=== PATIENT | male | born 1955 | race Native Hawaiian/Other Pacific Islander ===

== ENCOUNTER 2017-05-19 10:00 | Outpatient (CLI) | payer SELFPAY ==
[~2017-05-19] VITALS: Ht 185.4 cm; Wt 85.7 kg
[2017-05-19 11:15] LABS: PLATELET COUNT 207 K/uL (142-355)
[2017-05-19 11:41] LABS: POTASSIUM 3.9 mmol/L (3.6-5.2)
== END 2017-05-19 11:49 | disposition home or self-care (01) ==
LOC: INF 10:00
PROVIDERS: Internal Medicine Infectious Disease
DX: R78.81 Bacteremia (principal)
CPT/HCPCS: 36591; 80053; 85027; 86140; 96365; 96375; J0696; J1642

== ENCOUNTER 2017-05-20 09:40 | Outpatient (CLI) | payer SELFPAY ==
[~2017-05-20] VITALS: Ht 185.4 cm; Wt 85.7 kg
== END 2017-05-20 11:43 | disposition home or self-care (01) ==
LOC: INF 09:40
DX: R78.81 Bacteremia (principal)
CPT/HCPCS: 96365; 96375; J0696

== ENCOUNTER 2017-05-21 10:00 | Outpatient (CLI) | payer SELFPAY ==
[~2017-05-21] VITALS: Ht 185.4 cm; Wt 85.7 kg
== END 2017-05-21 19:23 | disposition home or self-care (01) ==
LOC: INF 10:00
DX: R78.81 Bacteremia (principal)
CPT/HCPCS: 96365; 96375; J0696; J1642

== ENCOUNTER 2017-05-22 10:06 | Outpatient (CLI) | payer SELFPAY | END 2017-05-22 11:05 | disposition home or self-care (01) | LOC: INF 10:06 | DX: R78.81 Bacteremia (principal) | CPT/HCPCS: 96365; 96375; J0696; J1642 ==

== ENCOUNTER 2017-05-23 09:42 | Outpatient (CLI) | payer SELFPAY | END 2017-05-23 10:55 | disposition home or self-care (01) | LOC: INF 09:42 | DX: R78.81 Bacteremia (principal) | CPT/HCPCS: 96365; 96375; J0696; J1642 ==

== ENCOUNTER 2017-05-24 10:03 | Outpatient (CLI) | payer SELFPAY ==
[~2017-05-24] VITALS: Ht 185.4 cm; Wt 85.7 kg
== END 2017-05-24 20:02 | disposition home or self-care (01) ==
LOC: INF 10:03
DX: R78.81 Bacteremia (principal)
CPT/HCPCS: 96365; J0696

== ENCOUNTER 2017-05-25 09:37 | Outpatient (CLI) | payer SELFPAY ==
[~2017-05-25] VITALS: Ht 30.5 cm; Wt 0.5 kg
== END 2017-05-25 20:00 | disposition home or self-care (01) ==
LOC: INF 09:37
DX: R78.81 Bacteremia (principal)
CPT/HCPCS: 96365; 96375; J0696; J1642

== ENCOUNTER 2017-05-26 10:03 | Outpatient (CLI) | payer SELFPAY ==
[~2017-05-26] VITALS: Ht 185.4 cm; Wt 85.7 kg
[2017-05-26 10:05] VITALS: BP 118/82; TEMP 97.5
[2017-05-26 10:34] LABS: PLATELET COUNT 275 K/uL (142-355)
[2017-05-26 10:46] LABS: POTASSIUM 4.1 mmol/L (3.6-5.2)
[2017-05-26 11:10] VITALS: BP 130/88
== END 2017-05-26 11:10 | disposition home or self-care (01) ==
LOC: INF 10:03
PROVIDERS: Family Medicine
DX: R78.81 Bacteremia (principal)
CPT/HCPCS: 80053; 85027; 86140; 96365; 96375; J0696

== ENCOUNTER 2017-05-28 07:48 | Outpatient (CLI) | payer SELFPAY | END 2017-05-28 22:23 | disposition home or self-care (01) | LOC: INF 07:48 | DX: R78.81 Bacteremia (principal) | CPT/HCPCS: 96365; 96375; J0696; J1642 ==

== ENCOUNTER 2017-05-29 10:04 | Outpatient (CLI) | payer SELFPAY | END 2017-05-29 19:13 | disposition home or self-care (01) | LOC: INF 10:04 | DX: R78.81 Bacteremia (principal) | CPT/HCPCS: 96365; 96375; J0696; J1642 ==

== ENCOUNTER 2017-05-30 09:46 | Outpatient (CLI) | payer SELFPAY | END 2017-05-30 22:46 | disposition home or self-care (01) | LOC: INF 09:46 | DX: R78.81 Bacteremia (principal) | CPT/HCPCS: 96365; 96375; J0696; J1642 ==

== ENCOUNTER 2017-05-31 09:13 | Outpatient (CLI) | payer SELFPAY ==
[~2017-05-31] VITALS: Ht 185.4 cm; Wt 85.7 kg
[2017-05-31 10:05] VITALS: BP 127/86; TEMP 98.1
[2017-05-31 10:55] VITALS: BP 122/80; TEMP 98.3
== END 2017-05-31 11:08 | disposition home or self-care (01) ==
LOC: INF 09:13
DX: R78.81 Bacteremia (principal)
CPT/HCPCS: 96365; 96375; J0696

== ENCOUNTER 2017-06-01 09:35 | Outpatient (CLI) | payer SELFPAY ==
[~2017-06-01] VITALS: Ht 185.4 cm; Wt 85.7 kg
[2017-06-01 10:00] VITALS: BP 126/79; TEMP 97.9
[2017-06-01 11:30] VITALS: BP 137/90; TEMP 97.7
== END 2017-06-01 22:29 | disposition home or self-care (01) ==
LOC: INF 09:35
DX: R78.81 Bacteremia (principal)
CPT/HCPCS: 87070; 96365; J0696

== ENCOUNTER 2017-09-24 09:18 | Outpatient (CLI) | payer OTHER | END 2017-09-24 19:38 | disposition home or self-care (01) | LOC: RAD 09:18 | DX: Z04.8 Encounter for examination and observation for other specified reasons (principal) ==

== ENCOUNTER 2018-06-23 08:19 | Outpatient (CLI) | payer OTHER ==
[2018-06-23 08:56] LABS: PLATELET COUNT 143 K/uL (142-355)
== END 2018-06-23 19:09 | disposition home or self-care (01) ==
LOC: LABW 08:19 → RAD 08:30 → LABW 19:09
PROVIDERS: Nurse Practitioner
DX: M47.26 Other spondylosis with radiculopathy, lumbar region (principal); R53.82 Chronic fatigue, unspecified; Z12.5 Encounter for screening for malignant neoplasm of prostate; E78.00 Pure hypercholesterolemia, unspecified; L98.9 Disorder of the skin and subcutaneous tissue, unspecified; E55.9 Vitamin D deficiency, unspecified
CPT/HCPCS: 36415; 80053; 80061; 82306; 82607; 84153; 84443; 85027

== ENCOUNTER 2018-07-06 11:27 | Outpatient (CLI) | payer OTHER | END 2018-07-06 21:07 | disposition home or self-care (01) | LOC: LABW 11:27 | DX: R74.8 Abnormal levels of other serum enzymes (principal) | CPT/HCPCS: 36415; 80074 ==

== ENCOUNTER 2018-07-22 11:00 | Outpatient (CLI) | payer OTHER | END 2018-07-22 19:14 | disposition home or self-care (01) | LOC: LABW 11:00 | DX: R76.8 Other specified abnormal immunological findings in serum (principal) | CPT/HCPCS: 36415; 87522 ==

== ENCOUNTER 2018-09-07 10:06 | Outpatient (CLI) | payer OTHER ==
[2018-09-07 10:25] LABS: PLATELET COUNT 193 K/uL (142-355)
[2018-09-07 10:37] LABS: POTASSIUM 4.2 mmol/L (3.6-5.2)
== END 2018-09-07 22:17 | disposition home or self-care (01) ==
LOC: LABW 10:06
PROVIDERS: Internal Medicine Gastroenterology
DX: B18.2 Chronic viral hepatitis C (principal)
CPT/HCPCS: 36415; 80053; 80074; 85027; 85610; 87522; 87902

== ENCOUNTER 2018-09-26 10:08 | Outpatient (CLI) | payer OTHER | END 2018-09-26 13:00 | disposition home or self-care (01) | LOC: US 10:08 | DX: B18.2 Chronic viral hepatitis C (principal) ==

== ENCOUNTER 2018-11-11 09:38 | Outpatient (CLI) | payer OTHER | END 2018-11-11 22:03 | disposition home or self-care (01) | LOC: RESP 09:38 | DX: R06.02 Shortness of breath (principal) ==

== ENCOUNTER 2019-03-17 08:53 | Outpatient (CLI) | payer OTHER | END 2019-03-17 21:17 | disposition home or self-care (01) | LOC: LABW 08:53 | DX: B18.2 Chronic viral hepatitis C (principal) | CPT/HCPCS: 36415; 87522 ==

== ENCOUNTER 2021-01-13 09:59 | Outpatient (CLI) | payer OTHER | END 2021-01-13 19:18 | disposition home or self-care (01) | LOC: RAD 09:59 | PROVIDERS: ATTEND Nurse Practitioner Family | DX: K64.8 Other hemorrhoids (principal); M25.512 Pain in left shoulder ==

== ENCOUNTER 2022-03-23 09:50 | Outpatient (CLI) | payer OTHER | END 2022-03-23 19:06 | disposition home or self-care (01) | LOC: LABW 09:50 | PROVIDERS: ATTEND Nurse Practitioner Family | DX: R76.8 Other specified abnormal immunological findings in serum (principal) | CPT/HCPCS: 36415; 87522 ==

== ENCOUNTER 2022-03-27 13:07 | Outpatient (CLI) | payer OTHER | END 2022-03-27 21:23 | disposition home or self-care (01) | LOC: US 13:07 | PROVIDERS: ATTEND Nurse Practitioner Family | DX: E04.8 Other specified nontoxic goiter (principal); R49.0 Dysphonia; R13.19 Other dysphagia ==